=== PATIENT | male | born 1940 | race Caucasian/White ===

== ENCOUNTER 2016-06-27 08:19 | Day surgery (SDC) | payer MEDICARE, OTHER ==
[~2016-06-27] VITALS: Ht 162.6 cm; Wt 52.4 kg
[2016-06-27] MEDS ORDERED: SPIRIVA (09:03)
[2016-06-27] MEDS ORDERED: PLAVIX (09:03)
[2016-06-27] MEDS ORDERED: ALBUTEROL (09:03)
[2016-06-27] MEDS ORDERED: NORCO (09:03)
[2016-06-27] MEDS ORDERED: LOPRESSOR (09:03)
[2016-06-27] MEDS ORDERED: LIPITOR (09:03)
[2016-06-27 09:05] VITALS: Ht 162.6 cm; Wt 52.4 kg
[2016-06-27 09:32] VITALS: BP 139/63; PULSE 72; RESP 20
[2016-06-27] MEDS ORDERED: MIDAZOLAM 1 MG/ML 2 ML INJ ONE ×2 (09:49)
[2016-06-27] MEDS ORDERED: FENTAnyl 50 MCG/ML VIAL ONE (09:50)
[2016-06-27 10:20] VITALS: BP 115/59; PULSE 63; RESP 18
--- NOTE | 2016-06-27 11:16 | GILP ---
DATE OF PROCEDURE: 06/27/2016 PROCEDURE: Colonoscopy. PREOPERATIVE DIAGNOSIS: Rule out colon polyps. The patient has a change in bowel habits, more cons tipation than diarrhea, rule out colorectal neoplasm. POSTOPERATIVE DIAGNOSIS: Diverticulosis. DESCRIPTION OF PROCEDURE: After the informed written consent was obtained, the patient was asked to lie on the left lateral side, 3 mg Versed and 50 mcg of fentanyl was given as intravenous anesthesi a. When the patient became somnolent, the Olympus video colonoscope was introduced into the rectum and scope was advanced all the way to the cecum. Moderate degree of diverticulosis noted all along the colon. They are small in size, no bleeding noted. Rest of the mucosa appeared normal with no polyp s or neoplasm. Endoscope was withdrawn. Retroflexion was performed. It was normal. On the way out , no hemorrhoids were noted and the procedure was terminated. PLAN: Recommend colonoscopy if needed. If not there is no need for repeat colonoscopy. Dictated By: MURALI SHEPARD MD NC/NTS Conf#: [id number] DID#: [id number] CC: MURALI SHEPARD MD;*EndCC*
== END 2016-06-27 10:14 | disposition home or self-care (01) ==
LOC: GIL 08:19
PROVIDERS: ATTEND Internal Medicine Gastroenterology
DX: R19.4 Change in bowel habit (principal); K57.90 Diverticulosis of intestine, part unspecified, without perforation or abscess without bleeding
CPT/HCPCS: 45378; J2250; J3010